=== PATIENT | male | born 1950 | race Caucasian/White ===

== ENCOUNTER 2018-07-19 10:00 | Observation (INO) | payer OTHER, BC ==
--- NOTE | 2018-07-26 06:14 | PDHPUP ---
History & Physical Update H&P update statement: This history and physical update is based on an assessment of the patient which was completed after admission or registration (within 24 hours), but prior to the surgery/procedure. H&P update: H&P reviewed & patient examined, no change in patient's condition since H&P completed
[2018-07-26] MEDS ORDERED: LR 1,000 ML IV ONE (06:26)
[2018-07-26] MEDS ORDERED: PROPOFOL/EMULSION 500 MG/50 ML BOTTLE IV ONE ×2 (06:35)
[2018-07-26] MEDS ORDERED: BUPIVACAINE/DEXTROSE 7.5MG/ML 2 ML SPINAL AMP SP ONE (06:35)
[2018-07-26] MEDS ORDERED: ROPIVACAINE HCL 100 MG/20 ML INJ ONE (06:35)
[2018-07-26] MEDS ORDERED: LIDOCAINE 2% 5 ML SDV ONE (06:35)
[2018-07-26] MEDS ORDERED: DEXAMETHASONE 4 MG/ML VIAL ONE (06:37)
[2018-07-26] MEDS ORDERED: CEFAZOLIN 2 GM/DEXTROSE/100 ML BAG IV ONE (06:37)
[2018-07-26] MEDS ORDERED: FAMOTIDINE 20 MG TAB ONE (06:37)
[2018-07-26] MEDS ORDERED: TRANEXAMIC ACID 3,000 MG/50 ML BAG IRR ONE ×2 (06:38→07:08)
[2018-07-26] MEDS ORDERED: ACETAMINOPHEN 500 MG TAB ONE (06:38)
[2018-07-26] MEDS ORDERED: VANCOMYCIN 1 GM VIAL ONE (06:38)
[2018-07-26] MEDS ORDERED: ACETAMINOPHEN 325 MG TAB ONE (06:40)
[2018-07-26] MEDS ORDERED: TRANEXAMIC ACID 3,000 MG in NS (SYRINGE) 50 ML IRR ONE (06:42)
[2018-07-26] MEDS ORDERED: ACETAMINOPHEN 325 MG TAB PO ONE (06:42)
[2018-07-26] MEDS ORDERED: ROPIVACAINE 0.2% 80 MG, EPINEPHrine 0.2 MG, KETOROLAC TROMETHAMINE 30 MG in SYRINGE 0 ML IU ONE (06:42)
[2018-07-26] MEDS ORDERED: DEXAMETHASONE 4 MG/ML VIAL IVP ONE (06:42)
[2018-07-26] MEDS ORDERED: FAMOTIDINE 20 MG TAB PO ONE (06:42)
[2018-07-26] MEDS ORDERED: ceFAZolin 2 GM/DEXTROSE 100 ML IV ONE (06:42)
[2018-07-26] MEDS ORDERED: PROPOFOL 200 MG/20 ML VIAL ONE (06:44)
[2018-07-26] MEDS ORDERED: ONDANSETRON 4 MG/2 ML VIAL IVP PRN ×2 (06:47→08:39)
[2018-07-26] MEDS ORDERED: MIDAZOLAM 2 MG/2 ML VIAL IVP ONE ×2 (06:47→07:59)
[2018-07-26] MEDS ORDERED: PROMETHAZINE HCL 25 MG/ML INJ IVP PRN ×2 (06:47→08:39)
[2018-07-26] MEDS ORDERED: MEPERIDINE 25 MG/0.5 ML AMP IVP PRN (06:47)
[2018-07-26] MEDS ORDERED: HYDROmorphONE/DILAUDID 2 MG/ML INJ IVP PRN (06:47)
[2018-07-26] MEDS ORDERED: PHENYLEPHRINE HCL 100 MCG/ML SYR IVP PRN (06:47)
[2018-07-26] MEDS ORDERED: oxyCODONE IR 5 MG TAB PO PRN ×2 (06:47→08:39)
[2018-07-26] MEDS ORDERED: fentaNYL 100 MCG/2 ML INJ IVP PRN (06:47)
[2018-07-26] MEDS ORDERED: LR 500 ML IV PRN (06:47)
[2018-07-26] MEDS ORDERED: NALOXONE HCL 0.4 MG/ML INJ IVP PRN (06:47)
[2018-07-26] MEDS ORDERED: METOCLOPRAMIDE 10 MG/2 ML VIAL IVP PRN ×2 (06:47→08:39)
[2018-07-26] MEDS ORDERED: *IRR*TRANEXAMIC ACID 3,000 MG/NS 50 ML IRR ONE (07:00)
[2018-07-26] MEDS ORDERED: BUPI/epINEPH/KETOROLAC IU ONE (07:00)
--- NOTE | 2018-07-26 07:06 | PDANEPAE ---
ANE Past Medical History - Cardiovascular History Hx Hypertension: No Hx Arrhythmias: No Hx Chest Pain: No Hx Coronary Artery / Peripheral Vascular Disease: No Hx CHF / Valvular Disease: No Hx Palpitations: No Cardiovascular History Comment: high chol - Pulmonary History Hx COPD: No Hx Asthma/Reactive Airway Disease: No Hx Recent Upper Respiratory Infection: No Hx Oxygen in Use at Home: No Hx Sleep Apnea: Yes Sleep Apnea Screening Result - Last Documented: Negative - Neurologic History Hx Cerebrovascular Accident: No Hx Seizures: No Hx Dementia: No - Endocrine History Hx Diabetes: No - Renal History Hx Renal Disorders: Yes Renal History Comment: difficulty urinating takes doxasosin. bph - Liver History Hx Hepatic Disorders: No - Neurological & Psychiatric Hx Hx Neurological and Psychiatric Disorders: No - Cancer History Hx Cancer: No - Congenital Disorder History Hx Congenital Disorders: No - GI History Hx Gastrointestinal Disorders: Yes Gastrointestinal History Comment: hx of colonoscopy in may - Other Health History Other Health History: dermatitis to scalp for the last year- using shampoo to control currently - Chronic Pain History Chronic Pain: Yes (left knee) - Surgical History Prior Surgeries: left shoulder manipulation in [place] 2010 and 2009. deviated septum 2013. 2009 -3 partial meniscectomy, 2 on left and 1 on right ANE Review of Systems Review of Systems: - Exercise capacity METS (RN): 4 METS ANE Patient History - Allergies Allergies/Adverse Reactions: No Known Allergies Allergy (Verified 07/06/18 11:21) - Home Medications Home Medications: Atorvastatin Calcium [Lipitor 20 mg (*)] 20 mg PO DAILY 07/03/18 [Last Taken Unknown] Dorzolamide/Timolol [Cosopt (*)] 1 drops RTEYE HS 07/03/18 [Last Taken Unknown] Doxazosin Mesylate 2 mg PO DAILY 07/03/18 [Last Taken Unknown] Gabapentin [Neurontin 300 MG (*)] 1,200 mg PO HS 07/03/18 [Last Taken Unknown] Latanoprost 0.005% [Xalatan 0.005% (*)] 1 drops EACHEYE HS 07/03/18 [Last Taken Unknown] Zolpidem Tartrate [Ambien 5MG (*)] 5 mg PO PRN 07/26/18 [Last Taken 1 Day Ago ~ 07/25/18] - NPO status NPO Since - Liquids (Date): 07/26/18 NPO Since - Liquids (Time): 23:00 NPO Since - Solids (Date): 07/25/18 NPO Since - Solids (Time): 20:00 - Anes Hx Anes Hx: no prior problems - Smoking Hx Smoking Status: Never smoked - Family Anes Hx Family Anes Hx: none Family Hx Anesthesia Complications: none ANE Labs/Vital Signs - Vital Signs Blood Pressure: 160/92 Heart Rate: 59 Respiratory Rate: 16 O2 Sat (%): 91 Height: 175.26 cm Weight: 80.286 kg ANE Physical Exam - Airway Neck exam: FROM Mallampati Score: Class 2 Mouth exam: normal dental/mouth exam - Pulmonary Pulmonary: no respiratory distress, no rales or rhonchi, clear to auscultation - Cardiovascular Cardiovascular: regular rate and rhythym, no murmur, rub, or gallop - ASA Status ASA Status: III ANE Anesthesia Plan Anesthesia Plan: spinal Regional Anesthesia: single shot NB
--- NOTE | 2018-07-26 07:07 | POSTANESTH ---
Post Anesthetic Evaluation Cardiovascular Status: Normal, Stable Respiratory Status: Normal, Stable Level of Consciousness/Mental Status: Can Participate in Eval Pain Control: Adequate, Prn Tx Ordered Nausea/Vomiting Control: Adequate, Prn Tx Ordered Complications Possibly Related to Anesthesia: None Noted
[2018-07-26] MEDS: ceFAZolin 1 GM VIAL ONE ×2 (07:57→09:46)
[2018-07-26] MEDS ORDERED: ePHEDrine SULFATE 25 MG/5 ML SYR ONE (08:12)
[2018-07-26] MEDS ORDERED: TEMAZEPAM 15 MG CAP PO PRN (08:39)
[2018-07-26] MEDS ORDERED: CYCLOBENZAPRINE 10 MG TAB PO PRN (08:39)
[2018-07-26] MEDS ORDERED: diphenhydrAMINE 25 MG CAP PO PRN (08:39)
[2018-07-26] MEDS ORDERED: POLYETHYLENE GLYCOL 3350 17 GM PKT PO PRN (08:39)
[2018-07-26] MEDS ORDERED: BISACODYL 10 MG SUPP PR PRN (08:39)
[2018-07-26] MEDS ORDERED: DIPHENOXYLATE/ATROPINE LOMOTIL 1 TAB PO PRN (08:39)
[2018-07-26] MEDS ORDERED: ONDANSETRON DISINTEGRATING 4 MG TAB PO PRN (08:39)
[2018-07-26] MEDS ORDERED: MAGNESIUM HYDROXIDE 30 ML UDCUP PO PRN (08:39)
[2018-07-26] MEDS ORDERED: LACTULOSE 20 GM/30 ML UDCUP PO PRN (08:39)
[2018-07-26] MEDS ORDERED: PROMETHAZINE HCL 25 MG SUPPR PR PRN (08:39)
--- NOTE | 2018-07-26 08:39 | POSTOPPROG ---
Post Op Note Date of Operation: 07/26/18 Surgeon: Sheba Escobar Ore Tester: Nafisa Escobar and Ramona Marion PA-C Anesthesiologist: Dr. Smith Anesthesia: Spinal, Other (Specify) (adductor canal block) Pre-op Diagnosis: left knee OA Post-op Diagnosis: same Indication: left knee pain Procedure: left medial PKA, robot assisted Findings: severe OA of medial aspect of left knee Inf/Abcess present in the surg proc area at time of surgery?: No EBL: 50-100
[2018-07-26] MEDS ORDERED: ATORVASTATIN CALCIUM 20 MG TAB PO SCH (09:00)
[2018-07-26] MEDS ORDERED: SENNOSIDES/DOCUSATE SODIUM TAB PO SCH (09:00)
[2018-07-26] MEDS ORDERED: LR 1,000 ML IV SCH (09:00)
[2018-07-26] MEDS ORDERED: DOXAZOSIN MESYLATE 1 MG TAB PO SCH (10:00)
[2018-07-26] MEDS ORDERED: ACETAMINOPHEN 325 MG TAB PO SCH (12:00)
[2018-07-26] MEDS ORDERED: ceFAZolin 2 GM/DEXTROSE 100 ML IV SCH (14:00)
[2018-07-26 14:18] VITALS: BP 143/87
[2018-07-26] MEDS ORDERED: FAMOTIDINE 20 MG TAB PO SCH (21:00)
[2018-07-26] MEDS ORDERED: DORZOLAMIDE/TIMOLOL 10 ML OPHT.BTL RTEYE SCH (21:00)
[2018-07-26] MEDS ORDERED: ASPIRIN 81 MG CHEWABLE TAB PO SCH (21:00)
[2018-07-26] MEDS ORDERED: GABAPENTIN 300 MG CAP PO SCH (21:00)
[2018-07-26] MEDS ORDERED: LATANOPROST 0.005% 2.5 ML OPHT DROPS EACHEYE SCH (21:00)
--- NOTE | 2018-07-27 18:42 | GOP ---
[f rep st] OPERATIVE REPORT DATE OF OPERATION: 07/26/2018 SURGEON: Eric Escobar MD MESH MAN: Nafisa Escobar PA-C. ANESTHESIA: Spinal. PREOPERATIVE DIAGNOSIS: Left knee osteoarthritis. POSTOPERATIVE DIAGNOSIS: Left knee osteoarthritis. PROCEDURE PERFORMED: QUENTIN uni-knee. FINDINGS: ESTIMATED BLOOD LOSS: 30 cc. INDICATIONS: This is a 68-year-old male with progressive pain of the left knee unresponsive to conse rvative care. Risks and benefits of surgical intervention were explained in detail. DESCRIPTION OF PROCEDURE: The patient was brought to the operating room and placed on the table in s upine position. Spinal anesthesia was induced without difficulty. A pneumatic tourniquet was applied about the left proximal thigh and the leg was prepped and draped in sterile fashion. Attention was tu rned first to the distal aspect of the left femur. At 3 cm proximal to the lateral rise of the femur, 2 percutaneous half pins were placed for fixation of the femoral array. In a similar fashion, 2 pins were placed anterolateral on the tibia for fixation of the tibial array. External land marking and r egistration of the hip center was performed without difficulty. After exsanguination by elevation, the tourniquet was inflated to 250 mmHg. Incision was made from the tibial tuberosity to the superior pole of the patella. Dissection was hernandez ied out through the subcutaneous tissue to the deep fascia using Bovie electrocautery for hemostasis. Medial parapatellar arthrotomy was carried out to the superior pole of the patella. The medial colla teral ligament was elevated and the infrapatellar fat pad was resected. Internal femoral and tibial r egistration was carried out without difficulty and the femoral and tibial checkpoints were placed and verified for accuracy. Attention was turned to the femur. The foot print for the size 4 femoral component was cut with the 6 mm bur using the Pidgon robotic system and verified for accuracy against the CT based plan. The hole wa s cut for the femoral post. In a similar fashion, the 6 mm bur was used to cut the foot print for the size 4 tibial component using the Pidgon system and verified for accuracy against the CT based plan. Attention was turned to the posterior aspect of the knee and remnants of the medial meniscus were exc ised. The posterior capsule was injected with ropivacaine, epinephrine and Toradol. Trial reduction w as carried out and there was excellent range of motion, alignment and stability using the size 4 femo ral component and the size 4 tibial component. All trials were then removed. The joint was thoroughly irrigated and carefully dried. One package of cement and 1 gram of vancomycin were mixed in the vacuum mixer and placed on the fixation surfaces of all components. The components were implanted and all excess cement was thoroughly removed. Implant placement was verified against the CT view plan and found to be excellent. The tourniquet was deflated and all bleeders were coagulated. The wound was thoroughly irrigated and closed using interrupted sutures of 2-0 Vicryl for the joint capsule. The subcu was closed with 3-0 V icryl and the skin with 4-0 Monocryl. Dermabond and Steri-Strips were applied, followed by a compress merrill dressing. The patient was then moved from the operating room to the recovery room in good conditi on, having tolerated the procedure well. IMPLANTS: Size 4 femur, size 4 tibia, 4 x 8 mm Polyethylene. PATHOLOGY: Left knee medial compartment . CASE CLASSIFICATION: Clean. /[id number]/MODL
== END 2018-07-26 15:58 | disposition home or self-care (01) ==
LOC: F3N 07-26 06:17 → INTOOBSV 07-26 06:17 → F3N 07-26 09:38
PROVIDERS: ADMIT Orthopaedic Surgery; ATTEND Orthopaedic Surgery
DX: M17.12 Unilateral primary osteoarthritis, left knee (principal); N40.1 Benign prostatic hyperplasia with lower urinary tract symptoms; R39.16 Straining to void; L20.9 Atopic dermatitis, unspecified
CPT/HCPCS: 27447; 73560; 97116; 97161; C1713; C1776; J0171; J0690; J1100; J1885; J2250; J2704; J2795; J3370

== ENCOUNTER → 2018-07-25 | Outpatient (CLI) | payer OTHER, BC ==
[~2018-07-25] MED LIST: ACETAMINOPHEN 325 MG TAB PO ONE; DEXAMETHASONE 4 MG/ML VIAL IVP ONE; FAMOTIDINE 20 MG TAB PO ONE; ROPIVACAINE 0.2% 80 MG, EPINEPHrine 0.2 MG, KETOROLAC TROMETHAMINE 30 MG in SYRINGE 0 ML IU ONE; TRANEXAMIC ACID 3,000 MG in NS (SYRINGE) 50 ML IRR ONE; ceFAZolin 2 GM/DEXTROSE 100 ML IV ONE
== END ==
LOC: FIMAGING 13:53
PROVIDERS: ATTEND Orthopaedic Surgery
DX: M17.12 Unilateral primary osteoarthritis, left knee (principal)